=== PATIENT | female | born 1995 | race Caucasian/White ===

== ENCOUNTER 2017-10-05 14:44 | Emergency (ER) | payer MEDICARE, OTHER ==
--- NOTE | 2017-10-05 15:30 | ERNOTE ---
Headache ER HPI - General Presenting Symptoms: headache, other - sinus pressure Time Seen by Provider: 10/05/17 15:22 Source: patient Exam Limitations: no limitations - Immun/Allergies/Home Medications Immunizations: IMMUNIZATION HX Immunizations Up to Date Yes History of Influenza Vaccine Yes Hx Pneumococcal Vaccination No Allergies/Adverse Reactions: Allergies No Known Allergies Allergy (Verified 10/05/17 14:57) Home Medications: HOME MEDICATIONS Albuterol Sulfate [Ventolin Hfa] 1 - 2 puff IH Q4H PRN #1 inhaler 05/29/16 [ Last Taken Unknown] Divalproex Sodium [Depakote] 1,000 mg PO HS 05/29/16 [Last Taken Unknown] Lisinopril [Zestril] 5 mg PO BID 05/29/16 [Last Taken Unknown] [place]-3 Acid Ethyl Esters [Lovaza] 1 gm PO BID 05/29/16 [Last Taken Unknown] Oxybutynin Chloride [Ditropan] 5 mg PO BID 05/29/16 [Last Taken Unknown] Ranitidine HCl [Zantac] 150 mg PO BID 05/29/16 [Last Taken Unknown] carBAMazepine [Tegretol Xr] 200 mg PO DAILY 05/29/16 [Last Taken Unknown] glipiZIDE [Glucotrol] 5 mg PO DAILY 05/29/16 [Last Taken Unknown] risperiDONE [Risperdal] 2 mg PO HS 05/29/16 [Last Taken Unknown] traZODone HCL [Oleptro ER] 100 mg PO HS 05/29/16 [Last Taken Unknown] Amox Tr/Potassium Clavulanate [Augmentin 875-125 Tablet] 875 mg PO Q12H #20 tab 10/05/17 [Last Taken Unknown] Naproxen [Naprosyn] 500 mg PO BID #60 tablet 10/05/17 [Last Taken Unknown] - History of Present Illness Narrative: Patient complains of pressure and fullness in both the frontal or maxillary sinuses. Rates the pain as moderate and got worse when she bent over. Timing of Headache: gradual Quality: Present: pressure Severity Maximum: Present: moderate Severity-Currently: Present: moderate Headache frequency: Present: occasional headaches Associated Symptoms: Reports: nasal congestion Review of Systems - Review of Systems Constitutional: Present: See HPI EYE: Present: no symptoms reported ENT: Present: other - sinus pressure Respiratory: Present: no symptoms reported Cardiology: Present: no symptoms reported Gastrointestinal/Abdominal: Present: no symptoms reported Genitourinary: Present: no symptoms reported Musculoskeletal: Present: no symptoms reported Skin: Present: no symptoms reported Neurological: Present: no symptoms reported Endocrine: Present: no symptoms reported Hematologic/Lymphatic: Present: no symptoms reported Psych: Present: no symptoms reported - Patient's Past Medical History Patient History - Medical: ADHD, Anxiety, Bipolar, Diabetes Type 2, Obesity Patient History - Cardiac/Respiratory: Hypertension Patient History - Cancer: No Hx of Cancer Patient History - Surgical Procedures: T & A Patient History - Other: None - Family History Mother Family History - Medical: Diabetes Type 2 Father Family History - Medical: Bipolar - Social History Living Situations: home Abuse History: No History of abuse Psych History: Hx of Anxiety, Hx of Bipolar Disorder Alcohol Use: none Drug Use: none - Immunizations Immunizations Up to Date: Yes Hx Pneumococcal Vaccination: No History of Influenza Vaccine: Yes Physical Exam - Physical Exam General Appearance: Present: wd/wn, alert, no apparent distress Head Exam: Present: normal inspection Eye Exam: Normal inspection: bilateral, PERRL: bilateral Ears, Nose, Throat: Present: sinus pain/drainage, normal pharynx Neck: Present: normal inspection, nontender Respiratory: Present: no respiratory distress, normal breath sounds, no accessory muscle use, chest nontender, lungs clear Cardiovascular/Chest: Present: regular rate, rhythm, no murmur, normal peripheral pulses Gastrointestinal/Abdominal: Present: normal bowel sounds, nontender, nondistended, soft, no organomegaly Rectal Exam: Present: deferred Back Exam: Present: normal inspection, normal range of motion Extremity Exam: Present: normal inspection, non-tender, no edema, normal range of motion Neurological Exam: Present: alert, oriented, normal mood/affect Skin Exam: Present: normal color, warm/dry Lymphatic Exam: Present: no adenopathy ED Progress - Vital Signs Patient's Vital Signs:: I have reviewed the patient's vital signs. Vital Signs: Vital Signs 10/05/17 14:54 Temperature 36.1 C L Pulse Rate 85 Respiratory 12 Rate Blood Pressure 133/79 O2 Sat by Pulse 99 Oximetry - Progress/Reassessment Chief Complaint: Headache Plan - Plan Plan: Patient appears to have a sinus headache and will be started on Augmentin and Naprosyn and she'll follow-up with her family physician as needed. Departure Clinical Impression: Sinus headache Sinusitis Qualifiers: Sinusitis location: frontal Chronicity: acute Recurrence: non-recurrent Qualified Code(s): J01.10 - Acute frontal sinusitis, unspecified - Departure Disposition: Home self-care Condition: Good Instructions: Sinus Headache, [id number], Sinusitis, Adult, [id number] Prescriptions: Amox Tr/Potassium Clavulanate [Augmentin 875-125 Tablet] 875 mg PO Q12H #20 tab Naproxen [Naprosyn] 500 mg PO BID #60 tablet
[2017-10-05 15:35] VITALS: BP 128/72
== END 2017-10-05 15:30 | disposition home or self-care (01) ==
LOC: ER 14:44
DX: J01.10 Acute frontal sinusitis, unspecified (principal); R51 Headache; F90.9 Attention-deficit hyperactivity disorder, unspecified type; E11.9 Type 2 diabetes mellitus without complications; F31.9 Bipolar disorder, unspecified; I10 Essential (primary) hypertension